=== PATIENT | male | born 1970 | race Caucasian/White ===

== ENCOUNTER 2016-10-09 12:57 | Emergency (ER) | payer SELFPAY ==
[~2016-10-09] VITALS: Ht 167.6 cm; Wt 72.6 kg
[2016-10-09 14:20] VITALS: BP 124/68
== END 2016-10-09 14:40 | disposition left against medical advice (07) ==
LOC: ED 12:57
DX: R53.1 Weakness (principal); R07.9 Chest pain, unspecified; F17.200 Nicotine dependence, unspecified, uncomplicated; Z88.6 Allergy status to analgesic agent; Z71.6 Tobacco abuse counseling
CPT/HCPCS: 83880; 99406; J7030; Q0092

== ENCOUNTER 2017-12-05 16:21 | Emergency (ER) | payer SELFPAY ==
[~2017-12-05] VITALS: Ht 167.6 cm; Wt 59.0 kg
[2017-12-05 16:28] VITALS: Ht 167.6 cm; Wt 59.0 kg
[2017-12-05 17:24] LABS: PLATELET COUNT 147 x10^3mcL (130-400)
[2017-12-05 17:28] LABS: CARBON DIOXIDE 36.4 mmol/L (21-32); CHLORIDE SERUM 98 mmol/L (98-107); GFR1 > 60 mL/min; GLUCOSE SERUM 95 mg/dL (74-106); POTASSIUM SERUM 3.7 mmol/L (3.5-5.1); SODIUM SERUM 138 mmol/L (136-145)
[2017-12-05 17:31] LABS: RED CELL DISTRIBUTION WIDTH 21.7 % (11.5-14.5)
[2017-12-05 17:33] LABS: ALBUMIN 2.9 g/dL (3.4-5.0); ALKALINE PHOSPHATASE 136 U/L (46-116); ALT/SGPT 27 U/L (16-63); AST/SGOT 32 U/L (15-37); TOTAL PROTEIN, SERUM 7.3 g/dL (6.4-8.2)
[2017-12-05 17:59] VITALS: BP 107/60
[2017-12-05 18:20] LABS: BAND NEUTROPHIL 3 % (0-10); MONOCYTE 9 % (0-7); SEGMENTED NEUTROPHILS 77 % (37-75); rbc morphology (normal/abnorm) ABNORMAL (NORMAL)
[2017-12-05 18:21] LABS: PLATELET MORPHOLOGY GIANT PLATELET SEEN; ovalocyte/elliptocyte 1+; schistocyte (helmet cell) 1+; target cell (codocyte) 1+
== END 2017-12-05 18:40 | disposition left against medical advice (07) ==
LOC: ED 16:21
PROVIDERS: Emergency Medicine
DX: R07.89 Other chest pain (principal); F17.210 Nicotine dependence, cigarettes, uncomplicated; F43.12 Post-traumatic stress disorder, chronic; I49.9 Cardiac arrhythmia, unspecified; Z88.2 Allergy status to sulfonamides; Z88.6 Allergy status to analgesic agent; Z86.79 Personal history of other diseases of the circulatory system; Z85.828 Personal history of other malignant neoplasm of skin; Z85.038 Personal history of other malignant neoplasm of large intestine; Z95.0 Presence of cardiac pacemaker
CPT/HCPCS: 36415; 85378; Q0092